=== PATIENT | female | born 1990 | race Two or more races ===

== ENCOUNTER → 2020-11-04 | Outpatient (CLI) | payer MEDICAID ==
[2020-11-04 10:47] LABS: Basophils # (auto) 0 10 ^3/uL (0-0.2); Basophils % (auto) 0.4 % (0.0-2.0); Eosinophils # (auto) 0.1 10 ^3/uL (0-0.8); Eosinophils % (auto) 1.7 % (0.0-7.0); Hematocrit 36.6 % (36.0-46.0); Hemoglobin 12.6 g/dL (12.2-16.2); Lymphocytes # (auto) 1.7 10 ^3/uL (0.4-5.4); Lymphocytes % (auto) 23.1 % (10.0-50.0); Mean Corpuscular Hemoglobin 31.6 pg (28.0-32.0); Mean Corpuscular Hgb Conc. 34.5 g/dL (32.0-36.0); Mean Corpuscular Volume 91.7 fL (80.0-100.0); Monocytes # (auto) 0.4 10 ^3/uL (0-1.3); Monocytes % (auto) 5.8 % (0.0-12.0); Nucleated Red Blood Cells % 0.1 %; Red Blood Cells 3.99 10^6/uL (4.0-5.20); Red Cell Distribution Width 14.1 % (11.8-14.3); White Blood Cell 7.3 10^3/uL (4.4-10.8)
[2020-11-04 11:49] LABS: Amphetamine Screen, Urine NEGATIVE (NEGATIVE); Barbiturate Scree,Urine NEGATIVE (NEGATIVE); Benzodiazephine Screen, Urine NEGATIVE (NEGATIVE); Cannabinoid Screen, Urine NEGATIVE (NEGATIVE); Cocaine Screen, Urine NEGATIVE (NEGATIVE); Opiate Scree,Urine NEGATIVE (NEGATIVE); Phencyclidine Screen, Urine NEGATIVE (NEGATIVE)
[2020-11-05 07:07] LABS: RPR Non Reactive (Non Reactive)
== END | disposition home or self-care (01) ==
LOC: LAB 10:04
PROVIDERS: ATTEND Obstetrics & Gynecology
DX: Z34.80 Encounter for supervision of other normal pregnancy, unspecified trimester (principal); Z31.430 Encounter of female for testing for genetic disease carrier status for procreative management; N39.0 Urinary tract infection, site not specified; Z3A.00 Weeks of gestation of pregnancy not specified
CPT/HCPCS: 36415; 80307; 83036; 84112; 84144; 84702; 85025; 86592; 86703; 86762; 86850; 86900; 86901; 87086; 87340

== ENCOUNTER → 2021-03-17 | Outpatient (CLI) | payer MEDICAID ==
[2021-03-17 10:47] LABS: Basophils # (auto) 0 10 ^3/uL (0-0.2); Basophils % (auto) 0.5 % (0.0-2.0); Eosinophils # (auto) 0.1 10 ^3/uL (0-0.8); Eosinophils % (auto) 1.5 % (0.0-7.0); Hematocrit 32.6 % (36.0-46.0); Hemoglobin 11.4 g/dL (12.2-16.2); Lymphocytes # (auto) 1.6 10 ^3/uL (0.4-5.4); Lymphocytes % (auto) 23.5 % (10.0-50.0); Mean Corpuscular Hemoglobin 30.4 pg (28.0-32.0); Mean Corpuscular Hgb Conc. 34.9 g/dL (32.0-36.0); Monocytes # (auto) 0.5 10 ^3/uL (0-1.3); Neutrophils # (auto) 4.4 10 ^3/uL (1.6-8.6); Neutrophils % (auto) 66.5 % (37.0-80.0); Nucleated Red Blood Cells % 0.2 %; Red Blood Cells 3.74 10^6/uL (4.0-5.20); Red Cell Distribution Width 13.9 % (11.8-14.3); White Blood Cell 6.6 10^3/uL (4.4-10.8)
[2021-03-18 06:06] LABS: RPR Non Reactive (Non Reactive)
== END | disposition home or self-care (01) ==
LOC: LAB 10:20
PROVIDERS: ATTEND Obstetrics & Gynecology
DX: Z34.80 Encounter for supervision of other normal pregnancy, unspecified trimester (principal); Z3A.00 Weeks of gestation of pregnancy not specified
CPT/HCPCS: 36415; 85025; 86592

== ENCOUNTER 2021-04-03 09:45 | Observation (INO) | payer MEDICAID ==
[2021-04-03] MEDS ORDERED: PREN-96 PO (10:40)
== END 2021-04-03 11:24 | disposition home or self-care (01) ==
LOC: LDRP 09:45
PROVIDERS: ADMIT Obstetrics & Gynecology; ATTEND Obstetrics & Gynecology
DX: O48.0 Post-term pregnancy (principal); Z3A.40 40 weeks gestation of pregnancy
CPT/HCPCS: 59025; 76818; 81002; 94760; G0378; G0379

== ENCOUNTER 2021-04-05 10:29 | Observation (INO) | payer MEDICAID ==
[~2021-04-05 10:29] MED LIST: PREN-96 PO
== END 2021-04-05 11:58 | disposition home or self-care (01) ==
LOC: LDRP 10:29
PROVIDERS: ADMIT Obstetrics & Gynecology; ATTEND Obstetrics & Gynecology
DX: O48.0 Post-term pregnancy (principal); Z3A.40 40 weeks gestation of pregnancy
CPT/HCPCS: 59025; 76818; 81002; 94760; G0378; G0379

== ENCOUNTER 2021-04-07 09:30 | Inpatient (IN) | payer MEDICAID ==
[~2021-04-07] VITALS: Ht 167.6 cm; Wt 90.7 kg
[2021-04-07] MEDS ORDERED: PROMETHAZINE HCL 25 MG/ML 1ML IV PRN (22:15)
[2021-04-07] MEDS ORDERED: PENICILLIN G POT 5MIL/D5 50ML 50 ML IV ONE (22:15)
[2021-04-07] MEDS ORDERED: PHISODERM TOP SOLN 240ML BTL TOP PRN (22:15)
[2021-04-07] MEDS ORDERED: LACT. RINGERS/OXYTOCIN 20UNITS 1,000 ML IV SCH (22:15)
[2021-04-07] MEDS ORDERED: BUTORPHANOL TARTRATE 2 MG/1 ML VIAL IV PRN ×2 (22:15)
[2021-04-07] MEDS ORDERED: DERMOPLAST 60ML BOTTLE TOP PRN (22:15)
[2021-04-07] MEDS ORDERED: WITCH HAZEL-GLYCERIN PAD TOP PRN (22:15)
[2021-04-07] MEDS ORDERED: LIDOCAINE 2%HCL (LOCAL ANESTH.) INJ 20ML MDV IJ PRN (22:15)
[2021-04-07] MEDS ORDERED: LACT. RINGERS/OXYTOCIN 20UNITS 500 ML IV ONE ×2 (22:15→22:45)
[2021-04-07] MEDS ORDERED: TERBUTALINE SULFATE 1 MG/ML 1ML VIAL SC PRN (22:15)
[2021-04-07] MEDS: LACTATED RINGER'S 1,000 ML IV SCH (22:28)
[2021-04-07 23:00] LABS: Basophils # (auto) 0 10 ^3/uL (0-0.2); Basophils % (auto) 0.6 % (0.0-2.0); Eosinophils # (auto) 0.1 10 ^3/uL (0-0.8); Eosinophils % (auto) 1.1 % (0.0-7.0); Hematocrit 32.2 % (36.0-46.0); Hemoglobin 11.2 g/dL (12.2-16.2); Lymphocytes # (auto) 1.6 10 ^3/uL (0.4-5.4); Lymphocytes % (auto) 28.8 % (10.0-50.0); Mean Corpuscular Hemoglobin 30.2 pg (28.0-32.0); Mean Corpuscular Hgb Conc. 34.7 g/dL (32.0-36.0); Monocytes # (auto) 0.4 10 ^3/uL (0-1.3); Monocytes % (auto) 7.6 % (0.0-12.0); Neutrophils # (auto) 3.4 10 ^3/uL (1.6-8.6); Neutrophils % (auto) 61.9 % (37.0-80.0); Nucleated Red Blood Cells % 0.1 %; White Blood Cell 5.5 10^3/uL (4.4-10.8)
[2021-04-07 23:14] LABS: Urine Bacteria NONE SEEN /hpf (None Seen); Urine Blood 1+ /uL (Negative); Urine Specific Gravity 1.009 (1.001-1.035); Urine WBC 10 /hpf (0 - 5)
[2021-04-07 23:19] LABS: Albumin 2.6 g/dL (3.4-5.0); BUN/Creatinine Ratio 15.4; Calcium 8.2 mg/dL (8.5-10.1); Potassium 3.6 mmol/L (3.5-5.1)
[2021-04-07 23:22] LABS: Bilirubin, Total 0.3 mg/dL (0.2-1.0); Total Protein 6.2 g/dL (6.4-8.2)
[2021-04-07 23:26] LABS: Alcohol, Urine < 3.0 mg/dL (0-10); Amphetamine Screen, Urine NEGATIVE (NEGATIVE); Barbiturate Scree,Urine NEGATIVE (NEGATIVE); Benzodiazephine Screen, Urine NEGATIVE (NEGATIVE); Cannabinoid Screen, Urine NEGATIVE (NEGATIVE); Cocaine Screen, Urine NEGATIVE (NEGATIVE); Opiate Scree,Urine NEGATIVE (NEGATIVE); Phencyclidine Screen, Urine NEGATIVE (NEGATIVE)
[2021-04-07 23:28] LABS: INR 0.92 (0.9-1.15); Partial Thromboplastin Time 24.4 sec (23.6-33.0)
[2021-04-08] MEDS: PENICILLIN G POTASSIUM 2,500,000 UNITS in D5W 5% 50 ML IV SCH ×3 (03:23→12:37)
[2021-04-08] MEDS: miSOPROStol 50 MCG per PRE-CUT 1/2 TAB PO PRN ×2 (07:14)
[2021-04-08] MEDS ORDERED: NALOXONE HCL 0.4 MG/ML VIAL IV ONE (08:45)
[2021-04-08] MEDS ORDERED: LIDOCAINE HCL 2 %PF INJ 10ML AMP IJ ONE (08:45)
[2021-04-08] MEDS ORDERED: ROPIVACAINE HCL 200 ML EPI SCH ×2 (08:45→15:00)
[2021-04-08] MEDS ORDERED: fentaNYL CITRATE 100 MCG/2 ML VL IV ONE (08:45)
[2021-04-08] MEDS ORDERED: ePHEDrine SULFATE 50 MG/ML AMP IV ONE (08:45)
[2021-04-08] MEDS ORDERED: LACTATED RINGER'S 1,000 ML IV ONE (08:45)
[2021-04-08] MEDS: LACTATED RINGER'S 1,000 ML IV SCH (09:03)
[2021-04-08] MEDS ORDERED: METHYLERGONOVINE MALEATE 0.2 MG/ML AMP IM ONE (16:20)
[2021-04-08] MEDS ORDERED: PENICILLIN G POTASSIUM 2,500,000 UNITS in D5W 5% 50 ML IV SCH (16:30)
[2021-04-08] MEDS ORDERED: METHYLERGONOVINE MALEATE 0.2 MG/ML AMP IM PRN (16:30)
[2021-04-08] MEDS ORDERED: IBUPROFEN 800 MG TAB PO SCH (18:00)
[2021-04-08] MEDS ORDERED: ONDANSETRON ODT 4 MG TAB PO PRN (18:00)
[2021-04-08] MEDS ORDERED: IBUPROFEN 600 MG TAB PO PRN (18:00)
[2021-04-08 19:00] VITALS: BP 117/66
[2021-04-08] MEDS: DOCUSATE SOD 100 MG CAP PO SCH (22:16)
[2021-04-08 23:00] VITALS: BP 102/56
[2021-04-09 03:00] VITALS: BP 63/56
[2021-04-09] MEDS: ACETAMINOPHEN 325 MG TAB PO PRN ×2 (05:48→19:32)
[2021-04-09 06:43] VITALS: BP 100/59
[2021-04-09 11:30] VITALS: BP 102/63
[2021-04-09 15:30] VITALS: BP 114/78
[2021-04-09 19:30] VITALS: BP 111/55
[2021-04-09] MEDS: DOCUSATE SOD 100 MG CAP PO SCH (22:16)
[2021-04-09 23:00] VITALS: BP 96/56
[2021-04-10 03:00] VITALS: BP 93/54
[2021-04-10 06:35] VITALS: BP 111/64
[2021-04-10] MEDS: ACETAMINOPHEN 325 MG TAB PO PRN (06:39)
== END 2021-04-10 08:00 | disposition home or self-care (01) | DRG 560 ==
LOC: UNDOADMOB 09:30 → LDRP 09:30 → PREOBSVTOIN 21:59
PROVIDERS: ADMIT Obstetrics & Gynecology; ATTEND Obstetrics & Gynecology
PROC: 10E0XZZ Delivery of Products of Conception, External Approach (ICD-10-PCS; principal; 2021-04-07)
PROC: 3E0DXGC Introduction of Other Therapeutic Substance into Mouth and Pharynx, External Approach (ICD-10-PCS; 2021-04-07)
PROC: 10907ZC Drainage of Amniotic Fluid, Therapeutic from Products of Conception, Via Natural or Artificial Opening (ICD-10-PCS; 2021-04-07)
PROC: 0HQ9XZZ Repair Perineum Skin, External Approach (ICD-10-PCS; 2021-04-07)
PROC: 3E0R3BZ Introduction of Anesthetic Agent into Spinal Canal, Percutaneous Approach (ICD-10-PCS; 2021-04-07)
PROC: 00HU33Z Insertion of Infusion Device into Spinal Canal, Percutaneous Approach (ICD-10-PCS; 2021-04-07)
PROC: 3E033VJ Introduction of Other Hormone into Peripheral Vein, Percutaneous Approach (ICD-10-PCS; 2021-04-07)
DX: O48.0 Post-term pregnancy (principal); Z37.0 Single live birth; O70.0 First degree perineal laceration during delivery; Z20.822 Contact with and (suspected) exposure to COVID-19; Z3A.40 40 weeks gestation of pregnancy; O71.82 Other specified trauma to perineum and vulva; O99.824 Streptococcus B carrier state complicating childbirth
CPT/HCPCS: 36415; 59025; 59409; 62282; 76818; 80053; 80307; 81001; 81002; 85025; 85610; 85730; 86850; 86900; 86901; 87426; 94760; 96360; 96361; 96365; 96366; 96372; 96374; 96375; G0378; J2540; J2590; J7060

== ENCOUNTER 2022-12-14 22:36 | Observation (INO) | payer MEDICAID ==
[~2022-12-14] VITALS: Ht 167.6 cm; Wt 88.5 kg
[2022-12-15 00:44] LABS: Rapid Influenza A Negative (Negative)
[2022-12-15 00:45] LABS: COVID19 ANTIGEN SOFIA FIA NEGATIVE (NEGATIVE); Rapid Influenza B Negative (Negative)
[2022-12-15 02:59] LABS: Basophils # (auto) 0 10 ^3/uL (0-0.2); Basophils % (auto) 0.5 % (0.0-2.0); Eosinophils # (auto) 0.2 10 ^3/uL (0-0.8); Eosinophils % (auto) 1.6 % (0.0-7.0); Hematocrit 33.4 % (36.0-46.0); Hemoglobin 11.3 g/dL (12.2-16.2); Lymphocytes # (auto) 1.9 10 ^3/uL (0.4-5.4); Lymphocytes % (auto) 18.7 % (10.0-50.0); Mean Corpuscular Hemoglobin 29.8 pg (28.0-32.0); Mean Corpuscular Hgb Conc. 33.8 g/dL (32.0-36.0); Mean Corpuscular Volume 88.2 fL (80.0-100.0); Monocytes # (auto) 0.6 10 ^3/uL (0-1.3); Monocytes % (auto) 5.4 % (0.0-12.0); Neutrophils # (auto) 7.5 10 ^3/uL (1.6-8.6); Neutrophils % (auto) 73.8 % (37.0-80.0); Red Blood Cells 3.79 10^6/uL (4.0-5.20); Red Cell Distribution Width 13.2 % (11.8-14.3); White Blood Cell 10.2 10^3/uL (4.4-10.8)
== END 2022-12-15 03:40 | disposition home or self-care (01) ==
LOC: LDRP 22:36
PROVIDERS: ADMIT Obstetrics & Gynecology; ATTEND Obstetrics & Gynecology
DX: Z34.83 Encounter for supervision of other normal pregnancy, third trimester (principal); Z20.822 Contact with and (suspected) exposure to COVID-19; Z3A.31 31 weeks gestation of pregnancy; W10.9XXA Fall (on) (from) unspecified stairs and steps, initial encounter; Y93.89 Activity, other specified; Y92.098 Other place in other non-institutional residence as the place of occurrence of the external cause; Y99.8 Other external cause status
CPT/HCPCS: 36415; 59025; 76815; 81002; 85025; 87426; 87804; 94760; G0378

== ENCOUNTER → 2023-01-26 | Outpatient (CLI) | payer MEDICAID ==
[2023-01-26 09:51] LABS: Basophils # (auto) 0 10 ^3/uL (0-0.2); Basophils % (auto) 0.8 % (0.0-2.0); Eosinophils # (auto) 0.1 10 ^3/uL (0-0.8); Eosinophils % (auto) 1.5 % (0.0-7.0); Hematocrit 35.3 % (36.0-46.0); Hemoglobin 11.8 g/dL (12.2-16.2); Lymphocytes # (auto) 1.4 10 ^3/uL (0.4-5.4); Lymphocytes % (auto) 24.7 % (10.0-50.0); Mean Corpuscular Hgb Conc. 33.5 g/dL (32.0-36.0); Mean Corpuscular Volume 89.5 fL (80.0-100.0); Monocytes # (auto) 0.4 10 ^3/uL (0-1.3); Neutrophils # (auto) 3.6 10 ^3/uL (1.6-8.6); Red Blood Cells 3.94 10^6/uL (4.0-5.20); Red Cell Distribution Width 17.1 % (11.8-14.3); White Blood Cell 5.5 10^3/uL (4.4-10.8)
[2023-01-27 10:47] LABS: RPR Non Reactive (Non Reactive); Treponema Pallidum Ab LC Non Reactive (Non Reactive)
[2023-01-28 22:06] LABS: Treponema pallidum Ab (FTA-Ab) Non Reactive (Non Reactive)
== END | disposition home or self-care (01) ==
LOC: LAB 09:30
PROVIDERS: ATTEND Obstetrics & Gynecology
DX: Z34.80 Encounter for supervision of other normal pregnancy, unspecified trimester (principal); Z3A.00 Weeks of gestation of pregnancy not specified
CPT/HCPCS: 36415; 84112; 85025; 86592

== ENCOUNTER 2023-02-07 01:08 | Inpatient (IN) | payer MEDICAID ==
[~2023-02-07] VITALS: Ht 167.6 cm; Wt 90.7 kg
[2023-02-07] MEDS ORDERED: PROMETHAZINE HCL 25 MG/ML 1ML IV PRN (02:00)
[2023-02-07] MEDS ORDERED: LACTATED RINGER'S 1,000 ML IV SCH (02:00)
[2023-02-07] MEDS ORDERED: PHISODERM TOP SOLN 240ML BTL TOP PRN (02:00)
[2023-02-07] MEDS ORDERED: LIDOCAINE 2%HCL (LOCAL ANESTH.) INJ 20ML MDV IJ PRN (02:00)
[2023-02-07] MEDS ORDERED: WITCH HAZEL-GLYCERIN PAD TOP PRN (02:00)
[2023-02-07] MEDS ORDERED: PROMETHAZINE HCL 25 MG/ML 1ML IM PRN (02:00)
[2023-02-07] MEDS ORDERED: DERMOPLAST 60ML BOTTLE TOP PRN (02:00)
[2023-02-07] MEDS ORDERED: LACTATED RINGER'S 1,000 ML IV ONE ×2 (02:15→03:45)
[2023-02-07 02:23] LABS: Basophils # (auto) 0 10 ^3/uL (0-0.2); Basophils % (auto) 0.6 % (0.0-2.0); Eosinophils # (auto) 0.1 10 ^3/uL (0-0.8); Eosinophils % (auto) 1.1 % (0.0-7.0); Hematocrit 34.5 % (36.0-46.0); Hemoglobin 11.8 g/dL (12.2-16.2); Lymphocytes # (auto) 1.6 10 ^3/uL (0.4-5.4); Lymphocytes % (auto) 27.1 % (10.0-50.0); Mean Corpuscular Hemoglobin 30.9 pg (28.0-32.0); Mean Corpuscular Hgb Conc. 34.2 g/dL (32.0-36.0); Mean Corpuscular Volume 90.4 fL (80.0-100.0); Monocytes # (auto) 0.5 10 ^3/uL (0-1.3); Monocytes % (auto) 8.3 % (0.0-12.0); Neutrophils # (auto) 3.8 10 ^3/uL (1.6-8.6); Neutrophils % (auto) 62.9 % (37.0-80.0); Nucleated Red Blood Cells % 0.1 %; Red Blood Cells 3.81 10^6/uL (4.0-5.20); Red Cell Distribution Width 17.6 % (11.8-14.3)
[2023-02-07 02:36] LABS: Alanine Aminotransferase 17 U/L (7-40); Albumin 3.8 g/dL (3.2-4.8); Alkaline Phosphatase 81 U/L (46-116); Anion Gap 9 (5-15); Aspartate Aminotransferase 17 U/L (13-40); Calcium 8.6 mg/dL (8.5-10.1); Carbon Dioxide 20 mmol/L (20-30); Chloride 108 mmol/L (98-107); Glucose 84 mg/dL (74-106); Potassium 3.5 mmol/L (3.5-5.1); Sodium 137 mmol/L (136-145)
[2023-02-07 02:37] LABS: Bilirubin, Total 0.4 mg/dL (0.2-1.0); Total Protein 6.2 g/dL (5.7-8.2)
[2023-02-07 02:40] LABS: Blood Urea Nitrogen < 5 mg/dL (9-23)
[2023-02-07 02:50] LABS: INR 0.93 (0.9-1.15); Partial Thromboplastin Time 25.7 SEC (24.5-34.5); Prothrombin Time 9.8 sec (9.3-11.8)
[2023-02-07] MEDS ORDERED: LACT. RINGERS/OXYTOCIN 20UNITS 500 ML IV ONE ×2 (03:00→03:30)
[2023-02-07 03:40] LABS: Urine Bacteria FEW /hpf (None Seen); Urine Blood Negative /uL (Negative); Urine Clarity Clear (Clear); Urine Color Yellow (Yellow); Urine Protein, UAD Negative (Negative); Urine Specific Gravity 1.012 (1.001-1.035); Urine Urobilinogen Normal (Negative); Urine WBC 2 /hpf (0 - 5)
[2023-02-07] MEDS ORDERED: NALOXONE HCL 0.4 MG/ML VIAL IV ONE (03:45)
[2023-02-07] MEDS ORDERED: ROPIVACAINE HCL 200 ML EPI SCH (03:45)
[2023-02-07] MEDS ORDERED: ePHEDrine SULFATE 50 MG/ML AMP IV ONE (03:45)
[2023-02-07] MEDS ORDERED: LIDOCAINE HCL 2 %PF INJ 10ML AMP IJ ONE (03:45)
[2023-02-07] MEDS ORDERED: fentaNYL CITRATE 100 MCG/2 ML VL IV ONE (03:45)
[2023-02-07] MEDS ORDERED: Lidocaine W-Epinephrine 1.5%-1:200,000 INJ 10ml Vial IJ ONE (03:45)
[2023-02-07 04:07] LABS: Amphetamine Screen, Urine Neg (NEGATIVE); Benzodiazephine Screen, Urine Neg (NEGATIVE)
[2023-02-07 04:08] LABS: Barbiturate Scree,Urine Neg (NEGATIVE); Cannabinoid Screen, Urine Neg (NEGATIVE); Cocaine Screen, Urine Neg (NEGATIVE); Opiate Scree,Urine Neg (NEGATIVE); Phencyclidine Screen, Urine Neg (NEGATIVE)
[2023-02-07] MEDS ORDERED: ONDANSETRON ODT 4 MG TAB PO PRN (14:00)
[2023-02-07] MEDS ORDERED: ACETAMINOPHEN 325 MG TAB PO PRN (14:00)
[2023-02-07 15:30] VITALS: BP 107/65; PULSE 64; RESP 18; TEMP 98.1; O2SAT 98
[2023-02-07] MEDS: IBUPROFEN 600 MG TAB PO PRN (18:04)
[2023-02-07 19:15] VITALS: BP 102/67; PULSE 59; RESP 18; TEMP 98.5; O2SAT 99
[2023-02-07] MEDS ORDERED: DOCUSATE SOD 100 MG CAP PO SCH (22:00)
[2023-02-07 23:15] VITALS: BP 99/62; PULSE 66; RESP 18; TEMP 98; O2SAT 98
[2023-02-08] MEDS: IBUPROFEN 600 MG TAB PO PRN ×2 (01:54→08:14)
[2023-02-08 03:05] VITALS: BP 92/51; PULSE 65; RESP 18; TEMP 97.5; O2SAT 99
[2023-02-08 07:00] VITALS: BP 105/67; PULSE 66; RESP 17; TEMP 97.7; O2SAT 97
[2023-02-08 07:07] LABS: RPR Non Reactive (Non Reactive)
[2023-02-08 11:00] VITALS: BP 105/67; PULSE 63; RESP 17; TEMP 97.8; O2SAT 97
[2023-02-09 20:06] LABS: Treponema pallidum Ab (FTA-Ab) Non Reactive (Non Reactive)
== END 2023-02-08 14:30 | disposition home or self-care (01) | DRG 560 ==
LOC: UNDOADMOB 01:08 → LDRP 01:08 → OBSVTOIN 01:45 → INTOOBSV 01:45 → OBSVTOIN 01:57 → LDRP 01:57
PROVIDERS: ADMIT Obstetrics & Gynecology; ATTEND Obstetrics & Gynecology
PROC: 10E0XZZ Delivery of Products of Conception, External Approach (ICD-10-PCS; principal; 2023-02-07)
PROC: 3E0R3BZ Introduction of Anesthetic Agent into Spinal Canal, Percutaneous Approach (ICD-10-PCS; 2023-02-07)
PROC: 00HU33Z Insertion of Infusion Device into Spinal Canal, Percutaneous Approach (ICD-10-PCS; 2023-02-07)
DX: O80 Encounter for full-term uncomplicated delivery (principal); Z37.0 Single live birth; Z3A.39 39 weeks gestation of pregnancy
CPT/HCPCS: 36415; 59025; 59409; 62282; 80053; 80307; 81001; 81002; 85025; 85610; 85730; 86592; 86850; 86900; 86901; 94760; 96360; 96361; G0378; J2590